=== PATIENT | female | born 1995 | race African-American/Black ===

== ENCOUNTER 2023-06-07 13:21 | Emergency (ER) | payer OTHER ==
[~2023-06-07] VITALS: Ht 162.6 cm; Wt 77.1 kg
[2023-06-07] MEDS ORDERED: RAYOS1 MG PO (14:01)
[2023-06-07 14:59] LABS: ABG PH 7.407 (7.35-7.45)
[2023-06-07 15:00] LABS: ABG pCO2 33.7 mmHg (35-45); BICARBONATE 20.8 mmol/l (23-25); SaO2 97.6 %; Tco2 21.8 mmol/l; allen test SATISFACTORY; o2 21 %; puncture site RADIAL LEFT
[2023-06-07 15:44] LABS: HEMATOCRIT 37.3 % (36.0-45.00); HEMOGLOBIN 12.6 g/dL (12.0-15.00); MEAN CELL VOLUME 89.8 fL (80.00-100.00); MEAN CORPUSCULAR HEMOGLOBIN 30.4 pg (27.00-32.0); MEAN CORPUSCULAR HGB CONC 33.9 g/dl (32.0-36.0); PLATELET COUNT 238 K/uL (150-450); RED BLOOD COUNT 4.15 M/uL (4.00-6.00); RED CELL DISTRIBUTION WIDTH 14.3 % (11.5-14.5)
== END 2023-06-07 16:50 | disposition home or self-care (01) ==
LOC: ER 13:22
PROVIDERS: General Practice
DX: J11.1 Influenza due to unidentified influenza virus with other respiratory manifestations (principal); J45.909 Unspecified asthma, uncomplicated; Z20.822 Contact with and (suspected) exposure to COVID-19
CPT/HCPCS: 36415; 82803; 94640; 96365; 99282; J2930; J3475